=== PATIENT | male | born 1955 | race Caucasian/White ===

== ENCOUNTER 2025-01-29 06:29 | Emergency (ER) | payer OTHER ==
[2025-01-29] MEDS ORDERED: NA CHLORIDE 0.9% 500 ML ONE (06:46)
[2025-01-29] MEDS ORDERED: NA CHLORIDE 0.9% 100 ML ONE (06:46)
[2025-01-29] MEDS ORDERED: VANCOMYCIN 1 GM/VIAL ONE (06:46)
[2025-01-29] MEDS ORDERED: D5 0.9 NS 1,000 ML IV ONE (06:47)
[2025-01-29] MEDS ORDERED: CEFEPIME 1 GM/VIAL ONE (06:47)
--- NOTE | 2025-01-29 07:01 | RAD REPORT ---
EXAM: Chest Single View HISTORY: 69 years Male CHEST PAIN COMPARISON: None. FINDINGS: LUNGS/PLEURA: Probable small pleural effusions and moderate bilateral interstitial and airspace disea se. CARDIAC/MEDIASTINUM: Cardiomegaly. UPPER ABDOMEN: No significant abnormality. BONES: No acute abnormality. LINES/TUBES/OTHER: N/A IMPRESSION: Moderate interstitial and airspace disease favored to represent pulmonary edema. Multifocal pneumonia less likely though possible.
[2025-01-29 07:03] LABS: Absolute Lymphocytes (CBC) 0.6 K/uL (0.7-4.9); Absolute Monocytes 0.3 K/uL (0.1-1.3); Absolute Neutrophil 8.8 K/uL (1.8-8.0); Basophils % 0.2 % (0-1.3); Eosinophils % 0.1 % (0-4.4); Hematocrit 25.5 % (39.6-49.0); Hemoglobin 8.3 g/dL (13.6-17.9); Lymphocytes % 6.5 % (15.3-44.8); MCH 25.1 pg (27.0-35.0); MCHC 32.5 g/dL (32.0-36.0); MCV 77.1 fL (80-100); MPV 7.8 fL (7.6-11.3); Monocytes % 3.5 % (3.3-12.3); Neutrophils % 89.7 % (41.7-73.7); Platelets 281 thou/uL (152-406); RBC Red Blood Cell Count 3.31 M/uL (4.33-5.43)
[2025-01-29 07:13] LABS: PT Prothrombin Time 19.1 SECONDS (10-13.0); PTT, Activated Partial Thromb 34.7 SECONDS (27.2-37.4); Protime INR 1.72
[2025-01-29 07:29] LABS: Albumin 2.4 g/dL (3.4-5.0); Albumin/Globulin Ratio 0.8 (1.1-1.8); Anion Gap 9.6 mEq/L (5.0-15.0); Bilirubin Total 0.5 mg/dL (0.2-1.0); C-Reactive Protein 13.9 mg/L (<3.00); Protein, Total 5.4 g/dL (6.4-8.2); Thyroid Stimulating Hormone 2.34 uIU/mL (0.358-3.740)
[2025-01-29 07:32] LABS: Potassium 2.6 mEq/L (3.5-5.1)
[2025-01-29] MEDS ORDERED: FUROSEMIDE 40 MG/4 ML VIAL ONE (07:58)
[2025-01-29] MEDS ORDERED: KCL 20 MEQ/100 mL IVPB 200 ML IV ONE (07:58)
[2025-01-29] MEDS ORDERED: PANTOPRAZOLE 40 MG INJ ONE (07:58)
--- NOTE | 2025-01-29 08:01 | RAD REPORT ---
EXAMINATION: Head Brain Wo Cont CLINICAL INDICATION: Male, 69 years old.confusion TECHNIQUE: Axial CT images from the skull base to the vertex without intravenous contrast. Coronal an d sagittal reformatted images were created from the data set. One or more of the following dose reduction techniques were used: Automated exposure control, adjustment of the mA and/or kV according to patient size, and/or iterative reconstruction. Unless otherwise specified, incidental findings do not require dedicated imaging follow-up. [id number]. COMPARISON: No prior exam. FINDINGS: INTRACRANIAL: No acute intracranial hemorrhage. No hydrocephalus. No mass effect or midline shift. Mo derate chronic small vessel ischemic changes.Mild cerebral atrophy. VASCULATURE: No visualized abnormalities in the arteries or dural venous sinuses. SCALP/SKULL: No calvarial fracture identified. No acute soft tissue abnormality. SINUSES: The visualized paranasal sinuses are mostly clear. No significant mastoid fluid. IMPRESSION: No acute intracranial abnormality.
--- NOTE | 2025-01-29 08:06 | RAD REPORT ---
EXAM: Chest Abd Pelvis Wo Con CLINICAL INDICATION: Male, 69 years old hypothermia TECHNIQUE: CT chest, abdomen and pelvis was performed, without IV contrast, as per department protoco l. Axial, sagittal and coronal reconstructions were obtained. One or more of the following dose reduction techniques were used: Automated exposure control, adjustment of the mA and/or kV according to the patient size, and/or iterative reconstruction. Unless otherwise specified, incidental findings do not require dedicated imaging follow-up. [id number]. COMPARISON: No prior exam. FINDINGS: The lack of intravenous contrast limits the sensitivity of this exam for evaluation of solid visceral organs, vascular structures, and retroperitoneum. ---THORAX--- LOWER NECK AND CHEST WALL: Visualized thyroid gland and soft tissues are normal. MEDIASTINUM AND LYMPH NODES: No mediastinal mass or fluid collection. Normal size mediastinal, hilar, and axillary lymph nodes. THORACIC AORTA: Ascending thoracic aortic aneurysm measuring approximately 4.4 cm. PULMONARY ARTERIES: Enlarged main pulmonary arteries could indicate pulmonary artery hypertension. Un able to evaluate for pulmonary emboli due to either protocol or lack of contrast. HEART: Moderate cardiomegaly. Severe coronary artery calcifications.No significant pericardial effusi on. Aortic valve and mitral annular calcifications. LUNGS AND AIRWAYS: Atelectasis as a result of the pleural effusions. Patchy bilateral groundglass opa cities. Motion artifact limits evaluation for pulmonary nodule detection. PLEURA: Moderate bilateral pleural effusions. No pneumothorax. ---ABDOMEN/PELVIS--- UPPER GI: No significant abnormality. LIVER: Somewhat shrunken and probably cirrhotic liver. GALLBLADDER/BILE DUCTS: Cholecystectomy. Moderate extrahepatic biliary ductal dilatation. This could be secondary to the post-cholecystectomy state. Recommend correlation with LFT's. If abnormal, consider MRCP for further evaluation. ? PANCREAS: No mass, ductal dilation, or elida-pancreatic fluid. SPLEEN: Unremarkable. ADRENALS: No adrenal masses. KIDNEYS AND URETERS: No hydronephrosis.Low density and/or too small to characterize renal lesions whi ch are statistically benign.Nonobstructing renal calculi.No ureteral calculi. ABDOMINAL AORTA AND OTHER VESSELS: Moderate atherosclerotic changes without aortic aneurysm. PERITONEUM: Mild ascites. LYMPH NODES: No pathologic lymphadenopathy. ABDOMINAL WALL: Body wall edema. Fluid present in the right inguinal hernia. SMALL BOWEL/COLON: Small bowel has normal course and caliber. No colonic wall thickening or pericolon ic inflammatory changes.Normal appendix. Low formed stool burden. URINARY BLADDER: Decompressed by Chatman, not well assessed. REPRODUCTIVE ORGANS: No pathologic process. ---COMBINED--- MUSCULOSKELETAL: Bilateral hip arthroplasties with resultant streak artifact. Mild wedge compression deformities at multiple levels including T7, T9, T8 11, and L1 that are favored chronic. Remote left-sided rib fractures. ADDITIONAL FINDINGS: None. IMPRESSION: Findings consistent with pulmonary edema/congestive heart failure with moderate bilateral pleural eff usions. No acute findings present within the abdomen or pelvis. Incidental findings as noted above.
--- NOTE | 2025-01-29 08:14 | EDPHYS ---
Physician Documentation [facility] Name: Stuart Villalobos Age: 69 yrs Sex: Male : 1955 Arrival Date: 01/29/2025 Time: 06:29 Bed 3 Private MD: ED Physician Beau Macdonald HPI: 01/29 06:55 This 69 yrs old Male presents to ER via EMS with complaints of Unresponsive, sp4 hypoglycemia, hypothermia. 06:55 69-year-old male with history diabetes and chronic bilateral foot ulcers. Presents with sp4 acute onset of unresponsiveness at home. EMS was called by patient's . EMS determined patient's blood sugar was at 30. EMS administered D10 and sugar has improved to 150. On arrival to the emergency room patient has blood sugar 105. Historical: - Allergies: 06:48 PENICILLINS; jj7 06:48 STATINS HMG COA REDUCTASE INHIBITORS; jj7 - Home Meds: 09:29 duloxetine oral [Active]; Eliquis oral [Active]; digoxin Oral [Active]; Metoprolol bp Tartrate Oral [Active]; Minocycline Oral [Active]; pantoprazole oral [Active]; Prednisone Oral [Active]; torsemide oral [Active]; benzonatate oral [Active]; - PMHx: 06:48 Diabetes mellitus; jj7 - Immunization history:: Adult Immunizations unknown. - Social history:: Patient/guardian denies using alcohol, street drugs, IV drugs, caffeine, over the counter diet medications, tobacco products, Smoking status: Patient denies any tobacco usage or history of. - Infectious Disease History:: Denies. - Family history:: not pertinent. ROS: 06:57 Constitutional: Positive for unresponsiveness at home, positive hypoglycemia, positive sp4 for low body temperature 06:57 All other systems are negative, Exam: 06:57 Constitutional: Patient is debilitated appearing male, with chronic bilateral lower sp4 extremity edema, signs of physical debility. Bilateral foot diabetic ulcers Head/Face: Normocephalic, atraumatic. Eyes: Pupils equal round and reactive to light, extra-ocular motions intact. Lids and lashes normal. Conjunctiva and sclera are not injected. Cornea within normal limits. Periorbital areas with no swelling, redness, or edema. ENT: Nares patent. No nasal discharge, no septal abnormalities noted. Tympanic membranes are normal and external auditory canals are clear. Oropharynx with no redness, swelling, or masses, exudates, or evidence of obstruction, uvula midline. Mucous membranes moist. Neck: Trachea midline, no thyromegaly or masses palpated, and no cervical lymphadenopathy. Supple, full range of motion without nuchal rigidity, or vertebral point tenderness. Chest/axilla: Normal chest wall appearance and motion. Nontender with no deformity. No lesions are appreciated. Cardiovascular: Regular rate and rhythm with a normal S1 and S2. No gallops, murmurs, or rubs. Normal PMI, no JVD. No pulse deficits. Respiratory: Lungs have equal breath sounds bilaterally, clear to auscultation and percussion. No rales, rhonchi or wheezes noted. No increased work of breathing, no retractions or nasal flaring. Abdomen/GI: Soft, with normal bowel sounds. No distension or tympany. No guarding or rebound. No evidence of tenderness throughout. Back: No spinal tenderness. No costovertebral tenderness. Male : Normal genitalia with no discharge or lesions. Skin: Warm, dry with normal turgor. Normal color with no rashes, no lesions, and no evidence of cellulitis. MS/ Extremity: Pulses equal, no cyanosis. Neurovascular intact. Full, normal range of motion. Appearance of chronic right toe amputation, right foot with chronic ulcer with packing in place. There is chronic left foot lateral ulcer and healing stages. Neuro: Awake and alert, GCS 15, oriented to person, place, Cranial nerves II-XII grossly intact. Motor strength 5/5 in all extremities. Sensory grossly intact. 06:57 ECG was reviewed by the Attending Physician. EKG 0 639 atrial fibrillation with slow ventricular response rate 54. Left axis deviation. 07:16 Abdomen/GI: Digital rectal exam with disc inspector present. No melena, no bleeding, no sp4 dark or bright red blood, no fissure, no fistula, no mass, no hemorrhoid., Vital Signs: 06:48 BP 131 / 85; Pulse 93; Resp 16; Temp 92; Pulse Ox 100% on NC; FiO2 2 %; Pain 0/10; jj7 08:00 BP 131 / 80; Pulse 72; Resp 21; Temp 94.4; Pulse Ox 97% ; bp 09:00 BP 120 / 78; Pulse 57; Resp 21; Temp 94.5; Pulse Ox 100% ; bp 10:00 BP 117 / 92; Pulse 73; Resp 24; Temp 94.8; Pulse Ox 100% on 2 lpm NC; bp 11:00 BP 134 / 74; Pulse 57; Resp 20; Temp 95.3; Pulse Ox 100% ; bp 11:06 BP 134 / 74 RA Supine (auto/lg); Pulse 71; Resp 24 S; Temp 95.4(Ca); Pulse Ox 100% on 2 td1 lpm NC; 06:48 Pain Scale: Adult jj7 NIH Stroke Scale Scores: 07:00 NIHSS Score: 0 sp4 [place] Coma Score: 06:57 Eye Response: spontaneous(4). Motor Response: obeys commands(6). Verbal Response: sp4 oriented(5). Total: 15. MDM: 07:00 Differential Diagnosis altered mental status, sepsis, flu, Hypoglycemia secondary to sp4 insulin. Data reviewed: vital signs, nurses notes, EMS record, old medical records, lab test result(s), CBC, electrolytes, hepatic panel, EKG, radiologic studies, CT scan, plain films. Consideration of Admission/Observation Patient was admitted/placed on observation. Escalation of care including admission/observation considered. 07:01 Transition of care: After a detail discussion of the patient's case, care is sp4 transferred to Beau Macdonald MD. 07:17 Medical Screening Exam initiated seth 07:18 Management of patient was discussed with the following: Personal Lines Insurance Agent: Admit team . 01/29 06:38 Order name: Blood Culture Adult (2) 01/29 06:38 Order name: CBC with Diff; Complete Time: 09:44 4 01/29 06:38 Order name: CMP; Complete Time: 07:35 4 01/29 06:38 Order name: Lactate w/ 2H reflex if indic.; Complete Time: 07:30 4 01/29 06:38 Order name: Protime (+inr); Complete Time: 07:17 sp4 01/29 06:38 Order name: Ptt, Activated; Complete Time: 07:17 4 01/29 06:38 Order name: ABG 4 01/29 06:38 Order name: TSH; Complete Time: 07:35 4 01/29 06:38 Order name: UA W/ Microscopic; Complete Time: 09:16 sp4 01/29 06:38 Order name: T4 Free; Complete Time: 07:35 sp4 01/29 06:38 Order name: CRP; Complete Time: 07:35 sp4 01/29 06:39 Order name: Alcohol Level; Complete Time: 07:30 sp4 01/29 06:46 Order name: Glucose, Ancillary Testing; Complete Time: 07:17 EDMS 01/29 07:32 Order name: Type And Screen sp4 01/29 07:34 Order name: Phosphorus; Complete Time: 09:16 seth 01/29 08:07 Order name: Digoxin; Complete Time: 09:16 bp 01/29 09:20 Order name: Troponin High Sensitivity; Complete Time: 09:44 seth 01/29 09:20 Order name: LAB Add On eb 01/29 09:30 Order name: CBC Smear Scan; Complete Time: 09:44 EDMS 01/29 06:38 Order name: Chest Single View XRAY; Complete Time: 07:17 sp4 01/29 06:56 Order name: CT Head Brain wo Cont; Complete Time: 08:09 sp4 01/29 06:57 Order name: CT Chest Abdomen Pelvis W/O Contrast; Complete Time: 08:09 sp4 01/29 06:38 Order name: EKG; Complete Time: 06:38 sp4 01/29 06:38 Order name: Accucheck; Complete Time: 06:55 01/29 06:38 Order name: Cardiac monitoring; Complete Time: 06:55 sp4 01/29 06:38 Order name: Cath; Complete Time: 08:53 sp4 01/29 06:38 Order name: EKG - Nurse/Tech; Complete Time: 06:56 4 01/29 06:38 Order name: IV Saline Lock - Large Bore; Complete Time: 06:55 sp4 01/29 06:38 Order name: Labs collected and sent; Complete Time: 06:56 sp01/29 06:38 Order name: O2 Per Protocol; Complete Time: 06:55 sp01/29 06:38 Order name: O2 Sat Monitoring; Complete Time: 06:55 sp4 01/29 06:38 Order name: Vital Signs; Complete Time: 06:55 sp4 01/29 07:32 Order name: Chatman; Complete Time: 07:40 sp4 01/29 07:34 Order name: IV Saline Lock - Large Bore; Complete Time: 07:40 seth 01/29 07:38 Order name: Misc. Order: korey murrieta; Complete Time: 07:41 [facility] EC:39 Rate is 54 beats/min. Rhythm is irregularly irregular, A fib. Left axis deviation sp4 noted. QRS interval is normal. QT interval is normal. T waves are Normal. No ST changes noted. Clinical impression: No evidence of ischemia. Interpreted by me. Reviewed by me. Administered Medications: 07:04 Drug: Cefepime IVPB 2 grams IVPB at 200 ml/hr once over 30 mins; (mix in NS 100 mL) bm8 Route: IVPB; Rate: 200 ml/hr; Infused Over: 30 mins; Site: left antecubital; 11:14 Follow up: IV Status: Completed infusion bp 07:05 Drug: D5-NS IV 1000 ml IV at 125 ml/hr continuous Route: IV; Rate: 125 ml/hr; Site: bm8 left antecubital; 11:14 Follow up: IV Status: Infusion continued upon transfer bp 08:00 Drug: vancoMYCIN IVPB 2 grams IVPB at calculated rate once Route: IVPB; Rate: bp calculated rate; Site: left antecubital; 11:14 Follow up: IV Status: Completed infusion bp 08:00 Drug: Potassium Chloride IV 20 mEq IV at per protocol once; administer over 1-2 hours bp Route: IV; Rate: per protocol; Site: left antecubital; 11:13 Follow up: IV Status: Completed infusion bp 08:08 Drug: Furosemide IVP 40 mg IVP once; give over 2 minutes Route: IVP; Site: left bp antecubital; 11:13 Follow up: Response: No adverse reaction bp 08:08 Drug: Pantoprazole IVP 40 mg IVP once Route: IVP; Site: left antecubital; bp 11:13 Follow up: Response: No adverse reaction bp 09:15 Drug: Potassium Chloride IV 20 mEq IV at per protocol once; administer over 1-2 hours bp Route: IV; Rate: per protocol; Site: left antecubital; 11:13 Follow up: IV Status: Completed infusion bp Point of Care Testing: Blood Glucose: 06:48 Blood Glucose: 105 mg/dL; jj7 Ranges: Critical Glucose Levels:Adult <50 mg/dl or >400 mg/dl <40 mg/dl or >180 mg/dl Disposition Summary: 01/29/25 09:28 Transfer Ordered Notes: Transfer Location: [facility] seth Reason: Higher level of care seth Condition: Fair(01/29/25 09:28) seth Problem: new(01/29/25 09:28) seth Symptoms: have improved(01/29/25 09:28) seth Accepting Physician: to [facility](01/29/25 11:16) bp Diagnosis - Hypoglycemia, unspecified(01/29/25 09:28) seth - Obesity, unspecified(01/29/25 09:28) seth - Anemia, unspecified(01/29/25:28) seth - vermin exterminator (current) use of anticoagulants(01/29/25:28) seth - Severe sepsis without septic shock(01/29/25 09:28) seth - Hypokalemia seth - Hypothermia, initial encounter seth - 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 Total time: 60 minutes NIH Stroke Scale - NIH Stroke Score Date: 01/29/2025 Time: 07:00 Total Score = 0 10. Dysarthria (speech clarity - read or repeat words) - 0(Normal) 11. Extinction and Inattention (visual/tactile/auditory/spatial/personal) - 0(No abnormality) 1a. Level of Consciousness (LOC) - 0(Alert) 1b. Level of Consciousness (LOC) (Month \T\ Age) - 0(Both) 1c. LOC Commands (Open \T\ Closes Eyes/Court Of Appeals Judge) - 0(Both) 2. Best Gaze (Lateral Gaze Paresis) - 0(Normal) 3. Visual Field Loss - 0(No visual loss) 4. Facial Palsy - 0(Normal) 5a. Left Arm: Motor (10-second hold) - 0(No drift) 5b. Right Arm: Motor (10-second hold) - 0(No drift) 6a. Left Leg: Motor (5-second hold - always test supine) - 0(No drift) 6b. Right Leg: Motor (5-second hold - always test supine) - 0(No drift) 7. Limb Ataxia (finger/nose \T\ heel/colón - test with eyes open) - 0(Absent) 8. Sensory Loss (pinprick arms/legs/face) - 0(Normal) 9. Best Language: Aphasia (description/naming/reading) - 0(No aphasia) Initials: sp4 Signatures: Dispatcher [employer] EDMS Beau Macdonald MD MD cha Peltier, Brian, RN RN bp Kavitha Parham RN RN jj7 Anthony Don MD MD sp4 Steve Donaldson, RN RN [id number] Corrections: (The following items were deleted from the chart) 06:38 06:38 THYROID STIMULAT HORMONE+C.LAB.BRZ ordered. EDMS EDMS 06:38 06:38 UA W/ Microscopic+U.LAB.BRZ ordered. EDMS EDMS 06:39 06:39 T4 FREE+C.LAB.BRZ ordered. EDMS EDMS 06:39 06:39 C-REACTIVE PROTEIN+C.LAB.BRZ ordered. EDMS EDMS 07:32 07:32 TYPE AND SCREEN+BB.LAB.BRZ ordered. 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
--- NOTE | 2025-01-29 08:14 | ER ---
Nurse's Notes [facility] Name: Stuart Villalobos Age: 69 yrs Sex: Male : 1955 Arrival Date: 01/29/2025 Time: 06:29 Bed 3 Private MD: Diagnosis: Hypoglycemia, unspecified;Obesity, unspecified;Anemia, unspecified;long-term (current) use of anticoagulants;Severe sepsis without septic shock;Hypokalemia;Hypothermia, initial encounter;Chronic combined systolic (congestive) and diastolic (congestive) heart failure Presentation: 01/29 06:41 Chief complaint: EMS states: EMS present to ER with patient c/o hypoglycemia glucose in jj7 the 30s. EMS gave D 10 W and glucagon patient when up to 150. Risk Assessment: Do you want to hurt yourself or someone else? Patient reports no desire to harm self or others. Onset of symptoms was January 28, 2025. Care prior to arrival: Medication(s) given: Glucagon, D 10 W. Mechanism of Injury: No Mechanism of Injury. 06:41 Method Of Arrival: EMS: [facility] 07:00 Coronavirus screen: At this time, the client does not indicate any symptoms associated [facility] with coronavirus-19. Ebola Screen: No symptoms or risks identified at this time. Initial Sepsis Screen: Does the patient meet any 2 criteria? Temp <36.0*C (96.8*F)) or > 38.3*C (100.9*F). Yes Does the patient have a suspected source of infection? No. Patient's initial sepsis screen is negative. Care prior to arrival: Medication(s) given: Glucose check: 150. 07:00 Acuity: TYLER 3 jj7 Triage Assessment: 06:48 General: Appears distressed. General: Behavior is Sluggish to respond to staff.. Pain: jj7 Denies pain. Neuro: Segura Agitation-Sedation Scale (RASS): -1 Drowsy Level of Consciousness is lethargic, Oriented to person, place, time, Reports Seizure activity noted at this time. Cardiovascular: Rhythm is atrial fibrillation. Historical: - Allergies: 06:48 PENICILLINS; jj7 06:48 STATINS HMG COA REDUCTASE INHIBITORS; jj7 - Home Meds: 09:29 duloxetine oral [Active]; Eliquis oral [Active]; digoxin Oral [Active]; Metoprolol bp Tartrate Oral [Active]; Minocycline Oral [Active]; pantoprazole oral [Active]; Prednisone Oral [Active]; torsemide oral [Active]; benzonatate oral [Active]; - PMHx: 06:48 Diabetes mellitus; jj7 - Immunization history:: Adult Immunizations unknown. - Social history:: Patient/guardian denies using alcohol, street drugs, IV drugs, caffeine, over the counter diet medications, tobacco products, Smoking status: Patient denies any tobacco usage or history of. - Infectious Disease History:: Denies. - Family history:: not pertinent. Screenin:05 Abuse screen: Denies threats or abuse. Nutritional screening: No deficits noted. jj7 Tuberculosis screening: No symptoms or risk factors identified. 11:15 [facility] ED Fall Risk Assessment (Adult) History of falling in the last 3 months, bp including since admission No falls in past 3 months (0 pts) Confusion or Disorientation No (0 pts) Intoxicated or Sedated No (0 pts) Impaired Gait No (0 pts) Mobility Assist Device Used No (0 pt) Altered Elimination No (0 pt) Score/Fall Risk Level 0 - 2 = Low Risk Oriented to surroundings. Assessment: 07:00 General: Appears distressed, obese, Behavior is drowsy. Pain: Denies pain. Neuro: Level bp of Consciousness is lethargic. Cardiovascular: Rhythm is atrial fibrillation. Respiratory: Airway is patent Respiratory effort is shallow. GI: No signs and/or symptoms were reported involving the gastrointestinal system. : No signs and/or symptoms were reported regarding the genitourinary system. EENT: No deficits noted. Derm: No deficits noted. Musculoskeletal: No deficits noted. 08:00 Reassessment: No changes from previously documented assessment. Patient and/or family bp updated on plan of care and expected duration. Pain level reassessed. 09:00 Reassessment: No changes from previously documented assessment. TRANSFER IN PROCESS. bp 10:00 Reassessment: REPORT TO EITAN BETANCUR AT [place] [id number] MA[address] . bp 11:11 Reassessment: EMS AT B/S FOR TRANSPORT. bp Vital Signs: 06:48 BP 131 / 85; Pulse 93; Resp 16; Temp 92; Pulse Ox 100% on NC; FiO2 2 %; Pain 0/10; jj7 08:00 BP 131 / 80; Pulse 72; Resp 21; Temp 94.4; Pulse Ox 97% ; bp 09:00 BP 120 / 78; Pulse 57; Resp 21; Temp 94.5; Pulse Ox 100% ; bp 10:00 BP 117 / 92; Pulse 73; Resp 24; Temp 94.8; Pulse Ox 100% on 2 lpm NC; bp 11:00 BP 134 / 74; Pulse 57; Resp 20; Temp 95.3; Pulse Ox 100% ; bp 11:06 BP 134 / 74 RA Supine (auto/lg); Pulse 71; Resp 24 S; Temp 95.4(Ca); Pulse Ox 100% on 2 td1 lpm NC; 06:48 Pain Scale: Adult jj7 Darell Coma Score: 06:57 Eye Response: spontaneous(4). Motor Response: obeys commands(6). Verbal Response: sp4 oriented(5). Total: 15. NIH Stroke Scale Scores: 07:00 NIHSS Score: 0 sp4 ED Course: 06:37 Patient arrived in ED. ha1 06:38 Anthony Don MD is Attending Physician. sp4 06:39 Maintain EMS IV. Dressing intact. Good blood return noted. Site clean \T\ dry. Gauge \T\ marquis 1 site: 20 G LAC. 06:40 Kavitha Parham, GYPSY is Primary Nurse. jj7 06:45 Thermoregulation: Bere blanket applied. bl1 06:47 EKG done, by ED staff, reviewed by Anthony Don MD. oe 06:52 Dressings: Kerlix X 2; right foot and left foot Dr Don removed kerlex dressing bl1 from LAM feet to assess current wounds. Post assessment lam feet dressed with kerlex, secured with tape and covered with yellow socks. 06:56 Blood Culture Adult (2) Sent. bl1 06:57 Chest Single View XRAY In Process Unspecified. EDMS 06:57 CBC with Diff Sent. bl1 06:57 CMP Sent. bl1 06:57 Lactate w/ 2H reflex if indic. Sent. bl1 06:57 Protime (+inr) Sent. bl1 06:57 Ptt, Activated Sent. bl1 06:57 Alcohol Level Sent. bl1 06:58 TSH Sent. bl1 06:58 T4 Free Sent. bl1 06:58 CRP Sent. bl1 07:00 Arm band placed on right wrist. Patient placed in an exam room, on a stretcher, on jj7 oxygen, on automated logistics specialist. 07:03 Triage completed. jj7 07:05 Patient has correct armband on for positive identification. Allergy band placed. Placed jj7 in gown. Bed in low position. Call light in reach. Side rails up X2. Report given to Cheo BETANCUR. 07:17 Attending Physician role handed off by Anthony Don MD seth 07:17 Beau Macdonald MD is Attending Physician. seth 07:40 Chatman cath inserted, using sterile technique, 16 Fr., by vt, balloon inflated, to bp gravity drainage, returned cloudy urine. Patient tolerated well. 07:41 Primary Nurse role handed off by Kavitha Parham, GYPSY bp 07:41 Cheo Rogers RN is Primary Nurse. bp 07:54 CT Head Brain wo Cont In Process Unspecified. EDMS 07:54 CT Chest Abdomen Pelvis W/O Contrast In Process Unspecified. EDMS 08:12 Ryan Bello MD is Hospitalizing Provider. seth 08:19 initiated a transfer with Alayna from the [facility] transfer [facility] at the request of eb the patient and patient's family. 09:15 connected the hospitalist inventory control clerk for [facility] [place]. Macdonald for patient eb transfer consultation. 09:22 administrative approval given by Alayna Feliz/ patient has been accepted to [facility] / room assignment will be given to the nurse once they call report/ Dr. Allen Cantrell has accepted the patient in transfer/ report to be called to [phone]. 11:15 No provider procedures requiring assistance completed. Patient transferred, IV remains bp in place. 11:15 Provided Education on: NONE. bp Administered Medications: 07:04 Drug: Cefepime IVPB 2 grams IVPB at 200 ml/hr once over 30 mins; (mix in NS 100 mL) bm8 Route: IVPB; Rate: 200 ml/hr; Infused Over: 30 mins; Site: left antecubital; 11:14 Follow up: IV Status: Completed infusion bp 07:05 Drug: D5-NS IV 1000 ml IV at 125 ml/hr continuous Route: IV; Rate: 125 ml/hr; Site: bm8 left antecubital; 11:14 Follow up: IV Status: Infusion continued upon transfer bp 08:00 Drug: vancoMYCIN IVPB 2 grams IVPB at calculated rate once Route: IVPB; Rate: bp calculated rate; Site: left antecubital; 11:14 Follow up: IV Status: Completed infusion bp 08:00 Drug: Potassium Chloride IV 20 mEq IV at per protocol once; administer over 1-2 hours bp Route: IV; Rate: per protocol; Site: left antecubital; 11:13 Follow up: IV Status: Completed infusion bp 08:08 Drug: Furosemide IVP 40 mg IVP once; give over 2 minutes Route: IVP; Site: left bp antecubital; 11:13 Follow up: Response: No adverse reaction bp 08:08 Drug: Pantoprazole IVP 40 mg IVP once Route: IVP; Site: left antecubital; bp 11:13 Follow up: Response: No adverse reaction bp 09:15 Drug: Potassium Chloride IV 20 mEq IV at per protocol once; administer over 1-2 hours bp Route: IV; Rate: per protocol; Site: left antecubital; 11:13 Follow up: IV Status: Completed infusion bp Medication: 11:15 VIS not applicable for this client. bp Point of Care Testing: Blood Glucose: 06:48 Blood Glucose: 105 mg/dL; jj7 Ranges: Outcome: 08:13 Decision to Hospitalize by Provider. seth 09:28 ER care complete, transfer ordered by . seth 11:14 Transferred by ground EMS to [facility], Transfer form completed. bp 11:14 Condition: stable 11:14 Instructed on the need for transfer, 11:16 Patient left the ED. bp NIH Stroke Scale - NIH Stroke Score Date: 01/29/2025 Time: 07:00 Total Score = 0 10. Dysarthria (speech clarity - read or repeat words) - 0(Normal) 11. Extinction and Inattention (visual/tactile/auditory/spatial/personal) - 0(No abnormality) 1a. Level of Consciousness (LOC) - 0(Alert) 1b. Level of Consciousness (LOC) (Month \T\ Age) - 0(Both) 1c. LOC Commands (Open \T\ Closes Eyes/Business Services Clerk) - 0(Both) 2. Best Gaze (Lateral Gaze Paresis) - 0(Normal) 3. Visual Field Loss - 0(No visual loss) 4. Facial Palsy - 0(Normal) 5a. Left Arm: Motor (10-second hold) - 0(No drift) 5b. Right Arm: Motor (10-second hold) - 0(No drift) 6a. Left Leg: Motor (5-second hold - always test supine) - 0(No drift) 6b. Right Leg: Motor (5-second hold - always test supine) - 0(No drift) 7. Limb Ataxia (finger/nose \T\ heel/colón - test with eyes open) - 0(Absent) 8. Sensory Loss (pinprick arms/legs/face) - 0(Normal) 9. Best Language: Aphasia (description/naming/reading) - 0(No aphasia) Initials: sp4 Signatures: Dispatcher [employer] EDBeau Zamora MD MD cha Espinosa, [place] oe Peltier, Brian, RN RN bp Lori Mayfield Heidy, RN RN ha1 Kavitha Parham RN RN jj7 Anthony Don MD MD sp4 Steve Donaldson RN RN bm8 Enrrique Carroll td1 Soledad Gilman RN RN bl1
[2025-01-29 08:29] LABS: Specific Gravity 1.009 (1.005-1.030); Sqamous Epithelial <5 /HPF (None Seen); Urine Bacteria None Seen /HPF (<20); Urine Bilirubin NEGATIVE (Negative); Urine Blood Trace (Negative); Urine Clarity Clear (Clear); Urine Color Light-Yellow (Yellow); Urine Glucose NEGATIVE (Negative); Urine Ketones NEGATIVE (Negative); Urine Micro Reflex YN NO BILL MICROSCOPIC; Urine Nitrite NEGATIVE (Negative); Urine Protein 2+ (Negative); Urine Urobilinogen Normal (Normal); Urine WBC <5 /HPF (<5); Urine pH 6.5 (5.0-7.0)
[2025-01-29 08:46] LABS: Arterial Blood Carboxyhemoglob 2.2 % (0-1.5); Blood Gas Oxyhemoglobin 93.2 % (94-97); Blood Gas THB 8.4 g/dl (12-18); Blood O2 Saturation 97.1 % (92-98.5)
[2025-01-29 09:30] LABS: Anisocytosis 1+; Blood Morphology Comment NOTED (NOT SEEN); Hypochromasia 1+; Microcytosis 1+; Platelet Estimate ADEQ; Platelets, Giant RARE; White Blood Cell Scan OK (OK)
[2025-01-29 11:23] VITALS: O2SAT 100
[2025-01-29 11:27] VITALS: BP 134/74; TEMP 95.3
--- NOTE | 2025-02-01 12:28 | EKG ---
Test Date: 2025-01-29 Test Time: 06:39:49 Tram Driver: [facility] MEASUREMENT RESULTS: Intervals: Rate: 54 SD: QRSD: 108 QT: 382 QTc: 362 [place]: P: SD: QRS: -32 T: 15 INTERPRETIVE STATEMENTS: Atrial fibrillation with slow ventricular response with ventricular escape complexes Left axis deviation Possible Anterior infarct, age undetermined Abnormal ECG No previous ECG available for comparison Electronically Signed On 02-01-25 12:21:48 CDT by Calderon Valenzuela
== END 2025-01-29 11:16 | disposition short-term general hospital (02) ==
LOC: ER 06:29
DX: E11.649 Type 2 diabetes mellitus with hypoglycemia without coma (principal); R65.20 Severe sepsis without septic shock; T68.XXXA Hypothermia, initial encounter; D64.9 Anemia, unspecified; E87.6 Hypokalemia; I50.42 Chronic combined systolic (congestive) and diastolic (congestive) heart failure; E66.9 Obesity, unspecified; Z79.01 Long term (current) use of anticoagulants
CPT/HCPCS: 96365; 96367; 87040 ×2; 85025; 81001; 36415; 86900; 86850; 87205; 84100; 85610; 80162; 86901; 82947 ×2; 83605; 85730; 84443; 84484; 84439; 80053; 86140; 70450; 71250; 74176; 71045; 82805; 51702; 96375; 99285; 82077; J3480; J1938; J2470; J3370; J7042; J7040; J0692; 93005